=== PATIENT | female | born 1965 | race Caucasian/White ===

== ENCOUNTER → 2017-06-30 08:11 | Outpatient (CLI) | payer OTHER, SELFPAY ==
--- NOTE | 2017-06-30 08:30 | BI_ITS ---
STEREOTACTIC CORE BIOPSY REASON FOR EXAM: Female, 51 years old. Microcalcifications in the upper outer quadrant of the right breast. PERTINENT HISTORY: Non-contributory. COMPARISON: None. TECHNIQUE: (All elements of maximal sterile barrier technique followed, including US elements as applicable) Upon arrival to the breast imaging department the patient's identification was confirmed and the RIGHT breast was marked according to time-out protocol. Stereotactic core biopsy and clip placement, to include potential risks and complications, was explained in full to the patient. Written and verbal consent were obtained prior to initiation of the procedure. The patient was placed in prone position on the stereotactic biopsy table with the RIGHT breast in craniocaudad compression. Track Laying Supervisor and stereotactic views were then obtained for targeting. The RIGHT breast was prepped and draped in standard sterile fashion and local anesthesia was obtained with 1% buffered lidocaine. A small dermatotomy was then made to introduce the core biopsy needle. Multiple core samples were obtained with a 8 gauge vacuum assisted core biopsy needle. The specimen's were radiographed to determine the presence of calcifications and submitted in formalin for pathology. A titanium clip was then deployed into the biopsy cavity. Upon completion of the procedure hemostasis was obtained and sterile dressing was applied. The patient tolerated the entire procedure without immediate complication and was discharged from the breast imaging department in good condition. BI/Stereo Breast Biopsy [facility] IMPRESSION: Stereotactic core biopsy for microcalcifications in the RIGHT breast without complication. Electronically Signed: Ian López MD at 15:00 EDT Tel [phone], Service support ,
--- NOTE | 2017-06-30 09:08 | BRBX_PTH ---
PATIENT: QUEENIE GRANT LOC: [facility] U#:[id number] AGE/SX: 59/F ROOM: RE06/30/[address]: Dr. Julian Holder MD : [id number] BED: DIS: SPEC #: [id number] RECD: 06/30/17 12:43 STATUS: ANGEL ELAYNE #: [id number] EMILI: 06/30/17 09:[address]: Julian Holder DEPT: SURGICAL PATHOLOGY RECD BY: Raj Montero ENTERED: 06/30/17 13:34 SP TYPE: BREAST BX OTHR DR: No Primary Care Phys Tissues: Right breast, NOS Procedures: Surgery Specimen Level IV HEADER OPERATION: Right breast stereotactic breast biopsy PRE-OP DIAGNOSIS: Abnormal mammogram TISSUE SUBMITTED: Right breast core tissue Ischemic time: 2 minutes Fixation time: 10.5 hours MICROSCOPIC DIAGNOSIS Right breast, stereotactic core biopsy: Fibrocystic changes, adenosis and intraductal hyperplasia without atypia. Focal microcalcifications. Negative for malignancy. OH:regino 07/01/17 MICROSCOPIC DESCRIPTION Slides are reviewed. GROSS DESCRIPTION Received is one container labeled with the patient's name and not further designated. The specimen consists of multiple irregular fragments of pink-ivy soft tissue that in aggregate measure 3.2 x 2 x 0.2 cm. The specimen is totally submitted in two cassettes. / AM:regino 06/30/17 TC:5 CPT: 73555
== END ==
PROVIDERS: Visit Provider Obstetrics & Gynecology
DX: N60.21 Fibroadenosis of right breast (principal); N62 Hypertrophy of breast; R92.8 Other abnormal and inconclusive findings on diagnostic imaging of breast
CPT/HCPCS: 19081; 88305; J7050